=== PATIENT | female | born 1985 | race African-American/Black ===

== ENCOUNTER 2022-11-23 06:58 | Emergency (ER) | payer OTHER, SELFPAY ==
[2022-11-23] VITALS (15 sets, daily range): BP systolic 174–224; BP diastolic 110–135; PULSE 58–93; RESP 16–18; TEMP 36.8; O2SAT 99–100
--- NOTE | ~2022-11-23 | XR_ITS ---
AP and lateral views of the left tibia/fibula Clinical History: Swelling Findings: No acute fracture or dislocation is seen. Osseous alignment is anatomic. Joint spaces are p reserved without significant erosive or degenerative change. Possible varicose vein at the medial asp ect of the proximal calf. Impression: No osseous or articular abnormality. Possible varicose vein at the medial aspect of the proximal calf. Reviewed, dictated and finalized at location . Impression: No osseous or articular abnormality. Possible varicose vein at the medial aspect of the proximal calf.
--- NOTE | ~2022-11-23 | US_ITS ---
EXAMINATION: US venous doppler [facility] DATE: 11/23/2022 08:16 INDICATION: Left lower limb pain and swelling TECHNIQUE: Grayscale ultrasound images without and with compression and Doppler ultrasound images of the left lower extremity veins were obtained. COMPARISON: 01/11/2009 FINDINGS: The visualized portions of left common femoral vein, profunda (deep) femoral vein, femoral vein, popl iteal vein, peroneal veins, posterior tibial veins, gastrocnemius vein and greater saphenous vein out flow are patent. IMPRESSION: 1. No deep venous thrombosis in the left lower limb. Reviewed, dictated and finalized at location A.
--- NOTE | ~2022-11-23 | XR_ITS ---
Left ankle Technique: AP, oblique, and lateral views were obtained. Clinical History: Swelling Findings: No acute fracture or dislocation is seen. Osseous alignment is anatomic. Ankle mortise and other visualized joint spaces are preserved. Soft tissues are otherwise unremarkable. Impression: Unremarkable left ankle. Reviewed, dictated and finalized at location . Impression: Unremarkable left ankle.
--- NOTE | ~2022-11-23 | CT_ITS ---
EXAMINATION: CT abdomen pelvis w con DATE: 11/23/2022 09:47 INDICATION: Left lower limb swelling TECHNIQUE: Computed tomography (CT) of the abdomen and pelvis was performed with 100 mL Omnipaque-350 intravenous contrast. Automated exposure control and iterative reconstruction technique were employe d. The dose-length product was 1165.82 mGy-cm. COMPARISON: None FINDINGS: Lung bases are clear. Heart size is normal. No pericardial or pleural effusion. Focal hepatic steatos is at the ligamentum teres. Liver, spleen, pancreas, bilateral adrenal glands and kidneys are normal. Bowels including the appendix are normal. Anteverted uterus with 3 enhancing fibroids measuring betw een 1.4 cm and 4.4 cm. There is decompressed bladder is normal. There are couple right ovarian cysts/ follicles measuring up to 2.5 cm. Left adnexa is unremarkable. Trace amount of likely physiologic judd e fluid in the deep pelvis. No free intraperitoneal gas. Tiny fat-containing umbilical hernia. No pat hologically enlarged abdominal or pelvic lymphadenopathy. Mild degenerative skeletal changes in the v isualized spine and pelvis. IMPRESSION: 1. No acute intra-abdominal/pelvic process. 2. Fibroid uterus. Reviewed, dictated and finalized at location A.
--- NOTE | 2022-11-23 07:38 | ED.EXTPRO ---
HPI - Extremity Problem General Chief complaint: Extremity Problem,Nontraumatic Stated complaint: L ANKLE SWELLING NO INJ Time Seen by Provider: 11/23/22 07:05 Source: patient Limitations: no limitations History of Present Illness MD Complaint: extremity pain and extremity swelling Onset (ago): week(s) (1) Pain Consistency: constant Location: left and lower extremity Quality: other (Admits to mild nondescript discomfort that does not radiate, and is worse when walking or bearing weight.) Relieving factors: nothing and other (Patient tried Advil, ibuprofen, elevation, compression stockings, IcyHot) Exacerbating factors: nothing Associated symptoms: denies other symptoms (Except for scant shortness of breath for the past 2 weeks.) Context: other (Denies history of blood clots. Admits to history of venous insufficiency. Denies recent illness, recent travel, immobilization, recent surgery, recent injuries. Admits to a history of left lower extremity swelling in the past that usually spontaneously resolves on its own and was told that this i) Related Data Allergies Allergy/AdvReac Type Severity Reaction Status Date / Time No Known Allergies Allergy Mild Verified 11/23/22 07:25 Review of Systems Review of Systems: A 10 system review of systems was completed on the patient and is negative except for what is stated in the HPI. Nursing and ancillary documentation was reviewed. PMFSH Comments At time of signature, I have reviewed and agree with nursing past medical, surgical, social and family history unless otherwise noted. Please see the nursing chart for further information. There is no relevant family history pertinent to the presenting complaint. Exam Narrative: CONST: No acute distress. Well nourished. HENMT: Head is normocephalic and atraumatic. Moist mucous membranes. No posterior oropharynx erythema. EYES: No conjunctival icterus, injection, or pallor. PERRL. NECK: No meningeal signs. RESP: Able to speak in full sentences. Normal respiratory effort. CTAB. CARDIO: Regular rate. Regular rhythm. 2+ DP and radial pulses bilaterally. GI: Nondistended. No tenderness to palpation. Soft. : No CVA tenderness to palpation. SKIN: No rashes or lesions noted on exposed skin. NEURO: Oriented x3. Moves all extremities. EXTREM: Left lower extremity nonpitting edema present for the knee distally. No right lower extremity edema. Bilateral lower extremity varicose veins present. No tenderness to palpation throughout bilateral lower extremities ankle range of motion intact bilaterally to active motion. No warmth or erythema or deformities. Compartments are soft. PSYCH: Normal affect. Course Vital Signs Vital signs: Vital Signs Temperature 98.2 F 11/23/22 07:00 Pulse Rate 93 11/23/22 07:00 Respiratory Rate 16 11/23/22 07:00 Blood Pressure 174/110 H 11/23/22 07:00 Pulse Oximetry 100 11/23/22 07:00 Oxygen Delivery Room Air 11/23/22 07:00 Temperature 98.2 F 11/23/22 07:00 Pulse Rate 58 L 11/23/22 10:51 Respiratory Rate 18 11/23/22 10:51 Blood Pressure 193/110 H 11/23/22 11:01 Pulse Oximetry 100 11/23/22 10:53 Oxygen Delivery Room Air 11/23/22 07:00 MDM - Extremity (Nontraumatic) MDM Narrative Medical decision making narrative: Patient is a 37-year-old female presented to the emergency department as noted above. Patient states that her primary care physician told her to come get evaluated for a blood clot in this which she would like to have done today. Vital signs reveal hypertensive blood pressure and otherwise grossly within normal limits. Patient appears in no acute distress resting comfortably. Left lower extremity examination does reveal nonpitting edema that is unilateral and otherwise patient is neurovascularly intact throughout the left lower extremity. Patient notes that she does not want anything for pain at this time nor does she want an IV or any laboratory analys
[2022-11-23 09:42] LABS: Estimated CRCL calculation 58 ml/min; Estimated Glomerular Filt Rate 47
[2022-11-23 10:02] LABS: Anion Gap 5 mmol/L (8-16); Blood Urea Nitrogen 19 mg/dL (7-17); Calcium 9.5 mg/dL (8.4-10.2); Carbon Dioxide 30 mmol/L (22-30); Chloride 104 mmol/L (98-107); Estimated CRCL calculation 67 ml/min; Estimated Glomerular Filt Rate 56; Glucose 85 mg/dL (65-110); Potassium 4.3 mmol/L (3.4-5.0); Sodium 139 mmol/L (137-145)
--- NOTE | 2022-11-23 11:36 | PC.NURSE ---
pt states they have not taken their prescribed daily bp meds today so pt came into ED running a high bp. pt has been maintaining a high bp and dr states they are comfortable discharging pt as long as they take their bp medication as prescribed now.
== END 2022-11-23 11:39 | disposition home or self-care (01) ==
PROVIDERS: Emergency Provider Student in an Organized Health Care Education/Training Program; PCP Nurse Practitioner Family
DX: R60.0 Localized edema (principal); D25.9 Leiomyoma of uterus, unspecified; R93.6 Abnormal findings on diagnostic imaging of limbs
CPT/HCPCS: 73590; 73610; 74177; 80048; 81025; 93971; 99284; Q9967

== ENCOUNTER 2022-11-29 08:28 | Outpatient (CLI) | payer OTHER, SELFPAY ==
--- NOTE | ~2022-11-29 | MR_ITS ---
EXAMINATION: MR lower leg LT wo con DATE: 11/29/2022 10:34 INDICATION: Ruptured Achilles tendon. Left ankle and lower leg swelling and pain. TECHNIQUE: Magnetic resonance imaging (MRI) of the left lower leg was performed without intravenous c ontrast. COMPARISON: Left tibia and fibula radiographs 11/23/2022 FINDINGS: Bone alignment is normal. No fracture. There are changes of prior sprain of anterior talofi bular ligament characterized by thickening and increased signal intensity. The peroneal tendons and a nterior and medial ankle tendons are normal. There is mild Achilles tendinopathy. The plantar fascia is normal. There is an enthesophyte at the calcaneal attachment. The talar dome is normal. There is a n ankle joint effusion. There is subcutaneous edema about the ankle. IMPRESSION: 1. Mild Achilles tendinopathy. 2. Changes of prior sprain of anterior talofibular ligament. 3. Ankle joint effusion. Reviewed, dictated and finalized at location A.
== END 2022-11-29 08:29 ==
PROVIDERS: PCP Nurse Practitioner Family; Visit Provider Nurse Practitioner Family
DX: M66.862 Spontaneous rupture of other tendons, left lower leg (principal); M25.472 Effusion, left ankle
CPT/HCPCS: 73718